=== PATIENT | female | born 1990 | race Caucasian/White ===

== ENCOUNTER 2019-09-22 09:32 | Emergency (ER) | payer OTHER ==
[~2019-09-22] VITALS: Ht 162.6 cm; Wt 68.0 kg
== END 2019-09-22 10:50 | disposition home or self-care (01) ==
LOC: ED 09:32
DX: R06.02 Shortness of breath (principal); R07.89 Other chest pain
CPT/HCPCS: 71045; 94640; 94664; 99284-25; J1100